=== PATIENT | male | born 1995 | race Caucasian/White ===

== ENCOUNTER → 2020-04-06 | Outpatient (CLI) | payer OTHER | LOC: LAB 09:17 | PROVIDERS: ATTEND Nurse Practitioner | DX: R05 Cough (principal); R06.89 Other abnormalities of breathing; R43.8 Other disturbances of smell and taste ==

== ENCOUNTER → 2020-09-04 | Outpatient (CLI) | payer OTHER | LOC: ULTRA 13:04 | PROVIDERS: ATTEND Family Medicine | DX: N50.3 Cyst of epididymis (principal); N50.89 Other specified disorders of the male genital organs ==